=== PATIENT | female | born 1955 | race Hispanic/Latino ===

== ENCOUNTER → 2019-10-13 | Outpatient (CLI) | payer MEDICARE ==
[~2019-10-13] MED LIST: REGADENOSON 0.4 MG/5 ML SYR IV ONE
--- NOTE | 2019-10-13 20:01 | Myoview Stress Test ---
DATE OF STUDY: 10/13/2019 08:30:00 Stress Test - Treadmill ONLY Dictation #[id number]. PROCEDURE TITLE: Rest/stress single isotope SPECT imaging with pharmacologic stress and gated SPECT imaging. INDICATION: Coronary artery disease. PROCEDURE IN DETAIL: Pharmacologic stress testing was performed with regadenoson per protocol. The heart rate was 65 beats per minute at rest and increased to 79 beats per minute during the regadenoson infusion. The resting blood pressure was 161/100 mmHg and decreased to 133/75 mmHg, which is a normal response. The resting electrocardiogram demonstrated normal sinus rhythm with right bundle-branch block. There was 0.[address]-segment depression in lead II, aVF, V5 and V6. Myocardial perfusion imaging was performed at rest following the injection of 11 mCi of tetrofosmin. At peak pharmacologic effect, the patient was injected with 33 mCi of tetrofosmin. Gated post-stress tomographic imaging was performed. FINDINGS: The overall quality of study is fair. Left ventricular cavity is noted to be normal size on the rest and stress studies. There is a small mild perfusion defect in the inferolateral wall on rest and stress. Gated SPECT imaging reveals inferolateral hypokinesis. The left ventricular ejection fraction was calculated to be 38%. IMPRESSION: Myocardial perfusion imaging is abnormal. There is a small nontransmural scar in the inferolateral wall. Overall, left ventricular systolic function was abnormal with regional wall motion abnormalities as above. Diane Zuniga MD ABS/MODL /[id number]
== END ==
LOC: NM 08:15
PROVIDERS: ATTEND Internal Medicine Interventional Cardiology
DX: R07.9 Chest pain, unspecified (principal); Z95.1 Presence of aortocoronary bypass graft
CPT/HCPCS: 78452; 93017; A9502; J2785